=== PATIENT | female | born 1970 | race Caucasian/White ===

== ENCOUNTER 2023-01-10 10:00 | Emergency (ER) | payer OTHER ==
[2023-01-10 10:11] VITALS: BP 133/77; PULSE 73; RESP 20; TEMP 98.2; BMI 23.6
== END 2023-01-10 11:00 | disposition home or self-care (01) ==
LOC: JERFT 10:00
DX: R23.4 Changes in skin texture (principal); M79.671 Pain in right foot; M79.672 Pain in left foot
CPT/HCPCS: 99282-25